=== PATIENT | male | born 1980 | race Caucasian/White ===

== ENCOUNTER 2016-08-10 12:46 | Emergency (ER) | payer OTHER ==
[2016-08-10] MEDS ORDERED: IBUPROFEN400 M1 PO (14:20)
[2016-08-10] MEDS ORDERED: ASPIRIN81 M1 PO (14:20)
[2016-08-10] MEDS ORDERED: NORCO 5-325 TA1 EACH PO (15:56)
== END 2016-08-10 16:25 ==
LOC: EDMED 12:46
DX: S92.511A Displaced fracture of proximal phalanx of right lesser toe(s), initial encounter for closed fracture (principal); W50.0XXA Accidental hit or strike by another person, initial encounter; Y92.69 Other specified industrial and construction area as the place of occurrence of the external cause; Y99.0 Civilian activity done for income or pay